=== PATIENT | female | born 1960 | race Caucasian/White ===

== ENCOUNTER 2023-06-24 07:31 | Emergency (ER) | payer OTHER ==
[~2023-06-24] VITALS: Ht 152.4 cm; Wt 93.0 kg
[2023-06-24 07:48] LABS: *BILIRUBIN,URIN NEGATIVE (NEGATIVE); *BLOOD, URINE NEGATIVE (NEGATIVE); *CLARITY,URINE CLEAR (CLEAR); *COLOR,URINE YELLOW (YELLOW); *KETONES,URINE NEGATIVE (NEGATIVE); *PROTEIN,URINE NEGATIVE (NEGATIVE); *UROBILINOGEN,URINE 0.2 E.U./dl (NORMAL); LEUKOCYTE ESTERASE ,URINE NEGATIVE (NEGATIVE); NITRITE, URINE NEGATIVE (NEGATIVE); UGLUCOSE NEGATIVE (NEGATIVE)
[2023-06-24 08:06] LABS: CALCIUM 9.6 mg/dL (8.5-10.1); CREATININE 0.7 mg/dL (0.6-1.3); POTASSIUM 3.5 mmol/L (3.5-5.1)
[2023-06-24] MEDS ORDERED: METFORMIN XR 500 MG TAB.SR.24H PO ONE (09:15)
[2023-06-24] MEDS ORDERED: METHOCARBAMOL 500 MG TABLET ONE (09:18)
[2023-06-24] MEDS ORDERED: GLIM2TAB31 PO (09:24)
[2023-06-24 10:13] VITALS: BP 118/80; TEMP 98; O2SAT 99
== END 2023-06-24 09:30 | disposition home or self-care (01) ==
LOC: ER 07:31
DX: E11.65 Type 2 diabetes mellitus with hyperglycemia (principal); Z79.899 Other long term (current) drug therapy
CPT/HCPCS: 36415; A4606; A4663

== ENCOUNTER 2025-01-29 16:47 | Inpatient (IN) | payer BC, OTHER ==
[~2025-01-29] VITALS: Ht 157.5 cm; Wt 85.3 kg
[~2025-01-29 16:47] MED LIST: GLIM2TAB31 PO
[2025-01-29 18:04] LABS: PLATELET COUNT (AUTO) 237 K/uL (179-408); RED BLOOD CELL COUNT(AUTO) 4.34 MIL/uL (3.63-4.92); RED CELL DISTRIBUTION WIDTH 16.6 % (12.3-17.7); WHITE BLOOD COUNT (AUTO) 9.6 K/uL (3.8-11.8)
[2025-01-29 18:13] LABS: ETHANOL < 3 MG/DL (0-10)
[2025-01-29 18:26] LABS: SODIUM SERUM 139 mmol/L (136-145)
[2025-01-29 18:27] LABS: ASPARTATE AMINOTRANSFERASE 34 U/L (15-37); CREATININE 0.7 mg/dL (0.6-1.3); TOTAL PROTEIN, SERUM 6.3 g/dL (6.4-8.2); UREA NITROGEN, BLOOD 20 mg/dL (7-18)
[2025-01-29 18:30] LABS: LACTIC ACID 5.2 mmol/L (0.4-2.0)
[2025-01-29] MEDS ORDERED: DEXTROSE 50% 50 ML DISP.SYRIN ONE (18:36)
[2025-01-29] MEDS ORDERED: CEFTRIAXONE /D5W 50ML IVPB **ER PYXIS IV ONE (18:49)
[2025-01-29] MEDS: DEXTROSE 50% 50 ML DISP.SYRIN IV ONE (19:04)
[2025-01-29] MEDS: IV NORMAL SALINE 1000 ML BAG IV ONE (19:04)
[2025-01-29] MEDS: CEFTRIAXONE 2 G in IV DEXTROSE 5% 100 ML IV ONE (19:04)
[2025-01-29] MEDS: IV 10% DEXTROSE 1,000 ML IV STA (19:17)
[2025-01-29 19:31] LABS: *BILIRUBIN,URIN NEGATIVE (NEGATIVE); *BLOOD, URINE NEGATIVE (NEGATIVE); *CLARITY,URINE SLIGHTLY CLOUDY (CLEAR); *COLOR,URINE YELLOW (YELLOW); *KETONES,URINE TRACE (NEGATIVE); *PROTEIN,URINE 1+ (NEGATIVE); *UROBILINOGEN,URINE 0.2 E.U./dl (NORMAL); LEUKOCYTE ESTERASE ,URINE TRACE (NEGATIVE); NITRITE, URINE NEGATIVE (NEGATIVE); UGLUCOSE 2+ (NEGATIVE)
[2025-01-29 19:43] LABS: *AMPHETAMINE, URINE NEGATIVE (NEGATIVE); *BARBITURATE, URINE NEGATIVE (NEGATIVE); *BENZODIAZEPINE, URINE NEGATIVE (NEGATIVE); *CANNABINOID, URINE NEGATIVE (NEGATIVE); *COCCAINE, URINE NEGATIVE (NEGATIVE); *OPIATE, URINE NEGATIVE (NEGATIVE); *PHENCYCLIDINE SCREEN,URINE NEGATIVE (NEGATIVE); FENTANYL, URINE NEGATIVE (NEGATIVE)
[2025-01-29 19:48] LABS: SQUAMOUS EPITHELIAL CELL,UR FEW /HPF (NONE SEEN)
[2025-01-29] MEDS ORDERED: ONDANSETRON 4 MG/2 ML VIAL IV PRN (21:30)
[2025-01-29 22:30] VITALS: BP 148/66; TEMP 98.3; O2SAT 97
[2025-01-29] MEDS: ENOXAPARIN SODIUM 40 MG/0.4 ML DISP.SYRIN SQ SCH (22:39)
[2025-01-30 00:34] VITALS: BP 141/75; TEMP 98.3; O2SAT 100
[2025-01-30 04:41] VITALS: BP 129/54; TEMP 98.1; O2SAT 99
[2025-01-30] MEDS: DEXTROSE 50% 50 ML DISP.SYRIN IV ONE (06:26)
[2025-01-30] MEDS: PANTOPRAZOLE SODIUM 40 MG TABLET.DR PO SCH (06:32)
[2025-01-30 06:43] LABS: PLATELET COUNT (AUTO) 211 K/uL (179-408); RED BLOOD CELL COUNT(AUTO) 4.36 MIL/uL (3.63-4.92); RED CELL DISTRIBUTION WIDTH 16.1 % (12.3-17.7); WHITE BLOOD COUNT (AUTO) 7.4 K/uL (3.8-11.8)
[2025-01-30 07:17] LABS: IRON, SERUM 38.0 ug/dL (50-175)
[2025-01-30 08:22] VITALS: BP 143/85; TEMP 98.4; O2SAT 99
[2025-01-30] MEDS: FUROSEMIDE 20 MG/2 ML VIAL IV SCH (08:44)
[2025-01-30] MEDS ORDERED: HYDR200T4 PO (09:49)
[2025-01-30] MEDS ORDERED: ASPI81TA31 PO (09:49)
[2025-01-30] MEDS ORDERED: CALC-1210 PO (09:49)
[2025-01-30] MEDS ORDERED: INSU100V28 SQ (09:49)
[2025-01-30] MEDS ORDERED: APIX5TAB PO (09:49)
[2025-01-30] MEDS ORDERED: SIMV-49 PO (09:49)
[2025-01-30] MEDS ORDERED: GABA100C PO (09:49)
[2025-01-30] MEDS ORDERED: METF-441 PO (09:49)
[2025-01-30] MEDS ORDERED: EMPA10TA PO (09:49)
[2025-01-30 11:01] LABS: ASPARTATE AMINOTRANSFERASE 30.0 U/L (15-37); CREATININE 1.2 mg/dL (0.6-1.3); SODIUM SERUM 144.0 mmol/L (136-145); TOTAL PROTEIN, SERUM 8.6 g/dL (6.4-8.2); UREA NITROGEN, BLOOD 17.0 mg/dL (7-18)
[2025-01-30 11:05] VITALS: BP 116/65; TEMP 97.7; O2SAT 100
[2025-01-30] MEDS: GABAPENTIN 100 MG CAPSULE PO SCH (14:32)
[2025-01-30] MEDS: ACETAMINOPHEN 325 MG TABLET PO PRN (15:21)
[2025-01-30 15:31] VITALS: BP 122/75; TEMP 97.6; O2SAT 96
[2025-01-30] MEDS ORDERED: DEXTROSE 50% 50 ML DISP.SYRIN IV PRN (16:00)
[2025-01-30] MEDS: BLOOD SUGAR DIAGNOSTIC 1 EACH STRIP VI SCH (17:30)
[2025-01-30 19:44] VITALS: TEMP 98.7
[2025-01-30] MEDS: DOCUSATE SODIUM 100 MG CAPSULE PO SCH (20:50)
[2025-01-30] MEDS: CEFTRIAXONE 1 G in IV DEXTROSE 5% 50 ML IV SCH (20:55)
[2025-01-30] MEDS: APIXABAN 5 MG TABLET PO SCH (21:14)
[2025-01-30 22:24] LABS: *BILIRUBIN,URIN NEGATIVE (NEGATIVE); *BLOOD, URINE TRACE (NEGATIVE); *CLARITY,URINE CLEAR (CLEAR); *KETONES,URINE NEGATIVE (NEGATIVE); *PROTEIN,URINE NEGATIVE (NEGATIVE); *UROBILINOGEN,URINE 0.2 E.U./dl (NORMAL); LEUKOCYTE ESTERASE ,URINE TRACE (NEGATIVE); NITRITE, URINE NEGATIVE (NEGATIVE); UGLUCOSE 3+ (NEGATIVE)
[2025-01-30 22:25] LABS: *COLOR,URINE LIGHT YELLOW (YELLOW)
[2025-01-30 22:31] LABS: *SODIUM RNDM,URINE 85 mmol/L (40-220); *URINE TOTAL PROTEIN RANDOM 6.5 mg/dL (<150/24HR)
[2025-01-30 22:37] LABS: *CREATININE,URINE < 13.0 mg/dL (30-125)
[2025-01-30 22:45] LABS: SQUAMOUS EPITHELIAL CELL,UR FEW /HPF (NONE SEEN)
[2025-01-31 01:00] VITALS: TEMP 98.2
[2025-01-31 06:00] VITALS: TEMP 97.4
[2025-01-31 07:08] LABS: PLATELET COUNT (AUTO) 205 K/uL (179-408); RED BLOOD CELL COUNT(AUTO) 3.82 MIL/uL (3.63-4.92); RED CELL DISTRIBUTION WIDTH 16.8 % (12.3-17.7); WHITE BLOOD COUNT (AUTO) 5.1 K/uL (3.8-11.8)
[2025-01-31 07:40] LABS: CREATINE KINASE, TOTAL 31.0 U/L (26-192)
[2025-01-31 07:43] VITALS: BP 124/65; TEMP 97.6; O2SAT 99
[2025-01-31] MEDS: ASPIRIN 81 MG TAB.CHEW PO SCH (08:19)
[2025-01-31] MEDS: HYDROXYCHLOROQUINE SULFATE 200 MG TABLET PO SCH (08:23)
[2025-01-31 10:47] VITALS: BP 112/57; TEMP 98.6; O2SAT 98
[2025-01-31] MEDS: INSULIN REGULAR, HUMAN 1000 UNIT/10 ML VIAL SQ PRN (12:33)
[2025-01-31 15:28] VITALS: BP 102/66; TEMP 98.4; O2SAT 99
[2025-01-31 19:00] VITALS: BP 117/48; TEMP 99.6; O2SAT 95
[2025-02-01] VITALS (7 sets, daily range): BP systolic 103–155; BP diastolic 58–81; TEMP 97.6–99.9; O2SAT 95–100
[2025-02-01 06:51] LABS: PLATELET COUNT (AUTO) 190 K/uL (179-408); RED BLOOD CELL COUNT(AUTO) 3.84 MIL/uL (3.63-4.92); RED CELL DISTRIBUTION WIDTH 16.7 % (12.3-17.7); WHITE BLOOD COUNT (AUTO) 4.6 K/uL (3.8-11.8)
[2025-02-01 07:07] LABS: ASPARTATE AMINOTRANSFERASE 24.0 U/L (15-37); CREATININE 0.6 mg/dL (0.6-1.3); SODIUM SERUM 140.0 mmol/L (136-145); TOTAL PROTEIN, SERUM 5.2 g/dL (6.4-8.2); UREA NITROGEN, BLOOD 19.0 mg/dL (7-18)
[2025-02-01] MEDS: HYDROCODONE/APAP 5-325MG TABLET PO PRN (13:38)
[2025-02-01 16:07] LABS: PTH, INTACT 50 pg/mL (15-65)
[2025-02-02 06:00] VITALS: TEMP 99.2
[2025-02-02 11:02] VITALS: BP 121/69; TEMP 98.1; O2SAT 95
[2025-02-02 15:56] VITALS: BP 116/71; TEMP 98.6; O2SAT 95
[2025-02-02] MEDS ORDERED: MEROPENEM 2 G in IV NORMAL SALINE 100 ML IV SCH (17:45)
[2025-02-02 19:00] VITALS: BP 102/70; TEMP 98.8; O2SAT 99
[2025-02-02] MEDS: MEROPENEM 1 G in IV NORMAL SALINE 100 ML IV SCH (21:01)
[2025-02-03 06:12] VITALS: BP 117/73; TEMP 98.1; O2SAT 95
[2025-02-03] MEDS ORDERED: MERO1VIA23 IV (08:34)
[2025-02-03] MEDS ORDERED: BLOO-697 IN (10:00)
[2025-02-03] MEDS ORDERED: lancet SUBCUT (10:00)
[2025-02-03] MEDS ORDERED: glucometer SUBCUT (10:00)
[2025-02-03 10:24] VITALS: BP 108/75; TEMP 98.1; O2SAT 98
[2025-02-03 15:48] VITALS: BP 127/86; TEMP 98; O2SAT 98
== END 2025-02-03 16:45 | disposition home health service (06) | DRG 637 ==
LOC: ER 16:47 → TELE3 20:35 → MEDSURG3 02-02 09:54
PROVIDERS: ADMIT Internal Medicine; ATTEND Internal Medicine
PROC: 05HB33Z Insertion of Infusion Device into Right Basilic Vein, Percutaneous Approach (ICD-10-PCS; principal; 2025-01-29)
DX: E11.649 Type 2 diabetes mellitus with hypoglycemia without coma (principal); E43 Unspecified severe protein-calorie malnutrition; G92.8 Other toxic encephalopathy; N39.0 Urinary tract infection, site not specified; D68.59 Other primary thrombophilia; G93.49 Other encephalopathy; Z16.12 Extended spectrum beta lactamase (ESBL) resistance; N17.9 Acute kidney failure, unspecified; S40.022A Contusion of left upper arm, initial encounter; S80.02XA Contusion of left knee, initial encounter; S30.0XXA Contusion of lower back and pelvis, initial encounter; W19.XXXA Unspecified fall, initial encounter; Y92.89 Other specified places as the place of occurrence of the external cause; Z68.34 Body mass index [BMI] 34.0-34.9, adult; E66.9 Obesity, unspecified; L89.156 Pressure-induced deep tissue damage of sacral region; Z79.4 Long term (current) use of insulin; E83.52 Hypercalcemia; E87.6 Hypokalemia; E78.5 Hyperlipidemia, unspecified; Z79.01 Long term (current) use of anticoagulants; Z79.84 Long term (current) use of oral hypoglycemic drugs; M89.8X9 Other specified disorders of bone, unspecified site; B96.20 Unspecified Escherichia coli [E. coli] as the cause of diseases classified elsewhere; I11.9 Hypertensive heart disease without heart failure; Z74.09 Other reduced mobility
CPT/HCPCS: 36415; 70450; 71045; 83550; 83605; 83735; 83970; 84100; 84155; 84165; 84300; 84443; 84484; 85025; 85730; 87040; 87077; 87086; 93307; A4606; A4663; C1758; G0378; G0480; J0696; J1650; J1815; J1938; J2185; J3490; J7040

== ENCOUNTER 2025-02-11 17:20 | Emergency (ER) | payer BC, OTHER ==
[~2025-02-11] VITALS: Ht 160 cm; Wt 86.2 kg
[~2025-02-11 17:20] MED LIST changes: +APIX5TAB PO; +ASPI81TA31 PO; +BLOO-697 IN; +CALC-1210 PO; +EMPA10TA PO; +GABA100C PO; +HYDR200T4 PO; +INSU100V28 SQ; +MERO1VIA23 IV; +METF-441 PO; +SIMV-49 PO; +glucometer SUBCUT; +lancet SUBCUT
[2025-02-11 17:51] VITALS: BP 135/84
[2025-02-11 19:10] LABS: PLATELET COUNT (AUTO) 216 K/uL (179-408); RED BLOOD CELL COUNT(AUTO) 4.08 MIL/uL (3.63-4.92); RED CELL DISTRIBUTION WIDTH 16.6 % (12.3-17.7); WHITE BLOOD COUNT (AUTO) 5.1 K/uL (3.8-11.8)
[2025-02-11 19:14] LABS: CREATININE 0.6 mg/dL (0.6-1.3); SODIUM SERUM 143.0 mmol/L (136-145); UREA NITROGEN, BLOOD 6.0 mg/dL (7-18)
[2025-02-11 19:19] LABS: ASPARTATE AMINOTRANSFERASE 18.0 U/L (15-37); TOTAL PROTEIN, SERUM 6.5 g/dL (6.4-8.2)
[2025-02-11 19:29] LABS: *BILIRUBIN,URIN 1+ (NEGATIVE); *BLOOD, URINE NEGATIVE (NEGATIVE); *CLARITY,URINE CLEAR (CLEAR); *COLOR,URINE YELLOW (YELLOW); *KETONES,URINE 1+ (NEGATIVE); *PROTEIN,URINE 1+ (NEGATIVE); *UROBILINOGEN,URINE 0.2 E.U./dl (NORMAL); LEUKOCYTE ESTERASE ,URINE NEGATIVE (NEGATIVE); NITRITE, URINE NEGATIVE (NEGATIVE); UGLUCOSE 2+ (NEGATIVE)
[2025-02-11 19:41] LABS: SQUAMOUS EPITHELIAL CELL,UR FEW /HPF (NONE SEEN)
[2025-02-11 21:37] VITALS: BP 130/80; TEMP 98.5; O2SAT 96
== END 2025-02-11 21:39 | disposition home or self-care (01) ==
LOC: ER 17:20
DX: N39.0 Urinary tract infection, site not specified (principal); E11.9 Type 2 diabetes mellitus without complications; Z79.4 Long term (current) use of insulin; Z79.82 Long term (current) use of aspirin; Z79.84 Long term (current) use of oral hypoglycemic drugs; Z79.899 Other long term (current) drug therapy; Z87.39 Personal history of other diseases of the musculoskeletal system and connective tissue
CPT/HCPCS: 36415; 85025; 87040; A4606; A4663

== ENCOUNTER 2025-05-08 18:07 | Inpatient (IN) | payer BC, OTHER ==
[~2025-05-08] VITALS: Ht 154.9 cm; Wt 75.3 kg
[2025-05-08] MEDS: IV NORMAL SALINE 1000 ML BAG IV ONE (18:34)
[2025-05-08] MEDS ORDERED: CEFTRIAXONE /D5W 50ML IVPB **ER PYXIS IV ONE (18:39)
[2025-05-08 18:44] LABS: PLATELET COUNT (AUTO) 263 K/uL (179-408); RED BLOOD CELL COUNT(AUTO) 5.28 MIL/uL (3.63-4.92); RED CELL DISTRIBUTION WIDTH 18.0 % (12.3-17.7); WHITE BLOOD COUNT (AUTO) 7.9 K/uL (3.8-11.8)
[2025-05-08] MEDS: CEFTRIAXONE 500 MG VIAL IV ONE (18:44)
[2025-05-08 18:49] LABS: *BILIRUBIN,URIN 1+ (NEGATIVE); *BLOOD, URINE NEGATIVE (NEGATIVE); *CLARITY,URINE CLEAR (CLEAR); *KETONES,URINE 4+ (NEGATIVE); *PROTEIN,URINE TRACE (NEGATIVE); *UROBILINOGEN,URINE 0.2 E.U./dl (NORMAL); LEUKOCYTE ESTERASE ,URINE NEGATIVE (NEGATIVE); NITRITE, URINE NEGATIVE (NEGATIVE); UGLUCOSE 2+ (NEGATIVE)
[2025-05-08 18:52] LABS: *COLOR,URINE LIGHT YELLOW (YELLOW)
[2025-05-08 18:57] LABS: ASPARTATE AMINOTRANSFERASE 15.0 U/L (15-37); CREATININE 1.3 mg/dL (0.6-1.3); SODIUM SERUM 134.0 mmol/L (136-145); TOTAL PROTEIN, SERUM 7.6 g/dL (6.4-8.2); UREA NITROGEN, BLOOD 30.0 mg/dL (7-18)
[2025-05-08 19:03] LABS: SQUAMOUS EPITHELIAL CELL,UR FEW /HPF (NONE SEEN)
[2025-05-08] MEDS ORDERED: INSULIN REGULAR, HUMAN 1000 UNIT/10 ML VIAL ONE (19:10)
[2025-05-08] MEDS: IV NS 1000 ML 1,000 ML IV ONE (19:23)
[2025-05-08] MEDS: INSULIN REGULAR, HUMAN 1000 UNIT/10 ML VIAL IV ONE (19:23)
[2025-05-08 19:28] LABS: ACETONE, SERUM SMALL (NEGATIVE)
[2025-05-08] MEDS ORDERED: ONDANSETRON 4 MG/2 ML VIAL IV PRN (20:30)
[2025-05-08] MEDS ORDERED: DEXTROSE 50% 50 ML DISP.SYRIN IV PRN (20:30)
[2025-05-08] MEDS ORDERED: INSULIN REGULAR, HUMAN 100 UNIT in IV NORMAL SALINE 99 ML IV PRN ×2 (20:30)
[2025-05-08] MEDS ORDERED: REMEDY ESSENTIAL ZINC PASTE 113 GM TP PRN (20:30)
[2025-05-08] MEDS ORDERED: MAGNESIUM HYDROXIDE 30 ML LIQUID UDC PO PRN (20:30)
[2025-05-08] MEDS: INSULIN REGULAR, HUMAN 100 UNIT in IV NORMAL SALINE 100 ML IV PRN (20:44)
[2025-05-08] MEDS: IV 0.9% SODIUM CHLORID+ 20 KCL 1,000 ML IV PRN (20:44)
[2025-05-08] MEDS ORDERED: SODIUM BICARBONATE 8.4% 50 MEQ/50 ML DISP.SYRIN IV ONE (20:50)
[2025-05-08] MEDS: SODIUM BICARBONATE 8.4% 50 MEQ/50 ML DISP.SYRIN IV ONE (20:54)
[2025-05-08] MEDS: SIMVASTATIN 40 MG TABLET PO SCH (21:00)
[2025-05-08 21:25] LABS: ABG BASE EXCESS -8.8 mmol/L (-2.0-3.0); ABG HCO3 14.3 mmol/L (21.0-28.0); ABG PCO2 24.4 mmHg (32.0-45.0); ABG PH 7.387 (7.350-7.450); ABG PO2 85.8 mmHg (83.0-108.0); ABG SITE RIGHT RADIAL; ABG TOTAL HEMOGLOBIN 13.5 G/dL (12.0-16.0); AaDO2 96.6 mmHg
[2025-05-08 21:47] LABS: CREATININE 1.1 mg/dL (0.6-1.3); SODIUM SERUM 141.0 mmol/L (136-145); UREA NITROGEN, BLOOD 26.0 mg/dL (7-18)
[2025-05-08 22:07] VITALS: BP 146/80
[2025-05-08] MEDS: IV D5/ 0.9% NACL 1,000 ML IV PRN (22:35)
[2025-05-08 23:32] VITALS: BP 147/87; TEMP 98.4; O2SAT 98
[2025-05-08] MEDS: BLOOD SUGAR DIAGNOSTIC 1 EACH STRIP VI SCH (23:41)
[2025-05-08 23:45] VITALS: BP 127/78; O2SAT 99
[2025-05-08 23:52] LABS: CREATININE 1.0 mg/dL (0.6-1.3); SODIUM SERUM 142.0 mmol/L (136-145); UREA NITROGEN, BLOOD 22.0 mg/dL (7-18)
[2025-05-08] MEDS: APIXABAN 5 MG TABLET PO SCH (23:59)
[2025-05-09] VITALS (21 sets, daily range): BP systolic 104–155; BP diastolic 64–109; TEMP 97.7–98.4; O2SAT 97–99
[2025-05-09] MEDS: INSULIN REGULAR, HUMAN 100 UNIT in IV NORMAL SALINE 99 ML IV PRN (00:18)
[2025-05-09 05:12] LABS: PLATELET COUNT (AUTO) 198 K/uL (179-408); RED BLOOD CELL COUNT(AUTO) 4.62 MIL/uL (3.63-4.92); RED CELL DISTRIBUTION WIDTH 17.8 % (12.3-17.7); WHITE BLOOD COUNT (AUTO) 5.7 K/uL (3.8-11.8)
[2025-05-09 05:23] LABS: ASPARTATE AMINOTRANSFERASE < 5 U/L (15-37); CREATININE 0.8 mg/dL (0.6-1.3); SODIUM SERUM 149 mmol/L (136-145); TOTAL PROTEIN, SERUM 5.7 g/dL (6.4-8.2); UREA NITROGEN, BLOOD 16 mg/dL (7-18)
[2025-05-09] MEDS: IV NS 1000 ML 1,000 ML IV PRN (07:36)
[2025-05-09] MEDS ORDERED: BLOOD SUGAR DIAGNOSTIC 1 EACH STRIP VI SCH (08:15)
[2025-05-09] MEDS ORDERED: DEXTROSE 50% 50 ML DISP.SYRIN IV PRN (08:15)
[2025-05-09] MEDS: INSULIN REGULAR, HUMAN 1000 UNIT/10 ML VIAL SQ PRN (08:53)
[2025-05-09] MEDS ORDERED: Empagliflozin (Jardiance) 10 MG) PO SCH (09:00)
[2025-05-09] MEDS: CALCIUM CARB/VITAMIN D 600-400 MG TABLET PO SCH (09:07)
[2025-05-09] MEDS: GABAPENTIN 100 MG CAPSULE PO SCH (09:07)
[2025-05-09] MEDS: ASPIRIN 81 MG TAB.CHEW PO SCH (09:07)
[2025-05-09] MEDS: IV D5 1/2 NS 1000 ML 1,000 ML IV PRN (09:24)
[2025-05-09] MEDS: POTASSIUM CHLORIDE 20 MEQ TAB.PRT.SR PO ONE (10:42)
[2025-05-09 10:59] LABS: CREATININE 0.8 mg/dL (0.6-1.3); SODIUM SERUM 143.0 mmol/L (136-145); UREA NITROGEN, BLOOD 13.0 mg/dL (7-18)
[2025-05-09] MEDS: BLOOD SUGAR DIAGNOSTIC 1 EACH STRIP VI SCH (11:58)
[2025-05-09] MEDS: HYDROXYCHLOROQUINE SULFATE 200 MG TABLET PO SCH (12:16)
[2025-05-09] MEDS: NEUTRA PHOS PACKET PO ONE (16:17)
[2025-05-10 00:34] VITALS: BP 93/64; TEMP 98.4; O2SAT 100
[2025-05-10 04:42] VITALS: BP 109/72; TEMP 97.8; O2SAT 96
[2025-05-10 07:43] VITALS: BP 134/73; TEMP 98.3; O2SAT 98
[2025-05-10 08:36] LABS: PLATELET COUNT (AUTO) 145 K/uL (179-408); RED BLOOD CELL COUNT(AUTO) 4.70 MIL/uL (3.63-4.92); RED CELL DISTRIBUTION WIDTH 18.0 % (12.3-17.7); WHITE BLOOD COUNT (AUTO) 6.1 K/uL (3.8-11.8)
[2025-05-10 08:46] LABS: CREATININE 0.5 mg/dL (0.6-1.3); SODIUM SERUM 139.0 mmol/L (136-145); UREA NITROGEN, BLOOD 9.0 mg/dL (7-18)
[2025-05-10] MEDS ORDERED: INSULIN REGULAR, HUMAN 300 UNITS/3 ML VIAL SQ PRN (10:00)
[2025-05-10] MEDS ORDERED: DEXTROSE 50% 50 ML DISP.SYRIN IV PRN (10:00)
[2025-05-10] MEDS: BLOOD SUGAR DIAGNOSTIC 1 EACH STRIP VI SCH (11:32)
[2025-05-10] MEDS: INSULIN REGULAR, HUMAN 1000 UNIT/10 ML VIAL SQ PRN (11:34)
[2025-05-10 12:00] VITALS: BP 144/66; TEMP 97.6; O2SAT 97
[2025-05-10] MEDS: POTASSIUM CHLORIDE 20 MEQ TAB.PRT.SR PO SCH (12:34)
[2025-05-10 16:00] VITALS: BP 100/57; TEMP 97.2; O2SAT 97
[2025-05-10 19:46] VITALS: BP 123/68; TEMP 97.8; O2SAT 97
[2025-05-10] MEDS: INSULIN GLARGINE,HUM 300 UNITS/3 ML CARTRIDGE SQ SCH (21:35)
[2025-05-10] MEDS: MUPIROCIN 2% OINT 22 GM TUBE NS SCH (21:38)
[2025-05-11 04:45] VITALS: BP 93/45; TEMP 97.9; O2SAT 97
[2025-05-11 07:42] VITALS: BP 122/66; TEMP 98.1; O2SAT 98
[2025-05-11 08:09] LABS: CREATININE 0.4 mg/dL (0.6-1.3); SODIUM SERUM 142 mmol/L (136-145); UREA NITROGEN, BLOOD 10 mg/dL (7-18)
[2025-05-11 11:41] VITALS: BP 106/71; TEMP 97.7; O2SAT 97
[2025-05-11 15:27] VITALS: BP 113/67; TEMP 97.8; O2SAT 98
[2025-05-11 19:10] VITALS: BP 114/66; TEMP 99.6; O2SAT 100
[2025-05-12 06:39] VITALS: BP 109/71; TEMP 98.3; TEMP 99.7; O2SAT 93
[2025-05-12] MEDS: ACETAMINOPHEN 325 MG TABLET PO PRN (06:55)
[2025-05-12 07:06] LABS: CREATININE 0.5 mg/dL (0.6-1.3); SODIUM SERUM 141.0 mmol/L (136-145); UREA NITROGEN, BLOOD 9.0 mg/dL (7-18)
[2025-05-12 07:27] LABS: PLATELET COUNT (AUTO) 128 K/uL (179-408); RED BLOOD CELL COUNT(AUTO) 4.29 MIL/uL (3.63-4.92); RED CELL DISTRIBUTION WIDTH 17.8 % (12.3-17.7); WHITE BLOOD COUNT (AUTO) 4.6 K/uL (3.8-11.8)
[2025-05-12 11:01] VITALS: BP 107/62; TEMP 98.1; O2SAT 96
[2025-05-12] MEDS ORDERED: INSU3INS6 SQ (11:44)
[2025-05-12] MEDS ORDERED: EMPA10TA PO (11:44)
[2025-05-12 15:34] VITALS: BP 109/57; TEMP 98.8; O2SAT 97
== END 2025-05-12 16:00 | disposition home health service (06) | DRG 637 ==
LOC: ER 18:07 → ICU IN 20:49 → UNDOADMIN 20:49 → CCU 23:02 → TELE-TD3 05-09 11:20 → MEDSURG3 05-10 10:02
PROVIDERS: ADMIT Nurse Practitioner Acute Care; ATTEND Nurse Practitioner Acute Care
PROC: 05HC33Z Insertion of Infusion Device into Left Basilic Vein, Percutaneous Approach (ICD-10-PCS; principal; 2025-05-10)
DX: E11.10 Type 2 diabetes mellitus with ketoacidosis without coma (principal); G93.41 Metabolic encephalopathy; E87.0 Hyperosmolality and hypernatremia; E86.0 Dehydration; I48.91 Unspecified atrial fibrillation; E66.9 Obesity, unspecified; I10 Essential (primary) hypertension; Z22.322 Carrier or suspected carrier of Methicillin resistant Staphylococcus aureus; Z79.4 Long term (current) use of insulin; Z79.01 Long term (current) use of anticoagulants; Z68.31 Body mass index [BMI] 31.0-31.9, adult; Z79.84 Long term (current) use of oral hypoglycemic drugs; Z79.899 Other long term (current) drug therapy; Z79.82 Long term (current) use of aspirin; Z84.19 Family history of other disorders of kidney and ureter; E78.5 Hyperlipidemia, unspecified; Z91.148 Patient's other noncompliance with medication regimen for other reason; R50.9 Fever, unspecified; R79.89 Other specified abnormal findings of blood chemistry
CPT/HCPCS: 36415; 36600; 70450; 71045; 82803; 83605; 83735; 84100; 85025; 85730; 87040; 87086; 97535-GO-CO; A4606; A4663; C1758; G0378; J0696; J1815; J3490; J7040; J7042

== ENCOUNTER 2025-06-02 15:15 | Emergency (ER) | payer BC, MEDICAID ==
[~2025-06-02] VITALS: Ht 152.4 cm; Wt 81.6 kg
[~2025-06-02 15:15] MED LIST changes: -GLIM2TAB31 PO; -HYDR200T4 PO; -INSU100V28 SQ; +INSU3INS6 SQ; -MERO1VIA23 IV; +[UNRECOGNIZED DRUG - CODE] PO
[2025-06-02 15:25] VITALS: BP 128/80
[2025-06-02] MEDS ORDERED: TDAP DIPH,PERTUSS,TET VAC/PF 0.5 ML DISP.SYRIN IM ONE (15:52)
[2025-06-02] MEDS ORDERED: CLIN-188 PO (15:52)
[2025-06-02] MEDS ORDERED: MUPI22OI2 TP (15:52)
[2025-06-02] MEDS ORDERED: NEOMY/BACITRA/POLYMYXIN B OINT UD PACKET TP ONE (15:53)
[2025-06-02] MEDS: TDAP DIPH,PERTUSS,TET VAC/PF 0.5 ML DISP.SYRIN IM ONE (16:03)
[2025-06-02] MEDS: NEOMY/BACITRA/POLYMYXIN B OINT UD PACKET TP ONE (16:03)
[2025-06-02 16:10] VITALS: BP 120/77; O2SAT 99
== END 2025-06-02 16:11 | disposition home or self-care (01) ==
LOC: ER 15:15
DX: T21.31XA Burn of third degree of chest wall, initial encounter (principal); I11.9 Hypertensive heart disease without heart failure; E78.5 Hyperlipidemia, unspecified; E11.9 Type 2 diabetes mellitus without complications; Z79.4 Long term (current) use of insulin; Z79.82 Long term (current) use of aspirin; Z79.84 Long term (current) use of oral hypoglycemic drugs; Z79.899 Other long term (current) drug therapy; X11.8XXA Contact with other hot tap-water, initial encounter; Y93.G3 Activity, cooking and baking; Y92.89 Other specified places as the place of occurrence of the external cause; Y99.9 Unspecified external cause status
CPT/HCPCS: 90715; A4606; A4663